=== PATIENT | male | born 1940 | race Caucasian/White ===

== ENCOUNTER 2018-12-02 10:24 | Observation (INO) | payer MEDICARE ==
[2018-12-02 11:06] LABS: #Basophils 0.1 thou/uL (0.0-0.2); #Eosinphils 0.1 thou/uL (0.0-0.7); #Lymphocytes 1.7 thou/uL (1.20-3.40); #Monocytes 1.1 thou/uL (0.11-0.59); #Neutrophils 13.6 thou/uL (1.40-6.50); %Basophils 0.3 % (0.0-1.0); %Eosinophils 0.5 % (0.0-10.0); %Lymphocytes 10.3 % (21.0-51.0); %Monocytes 6.7 % (0.0-10.0); %Neutrophils 82.1 % (42.0-75.0); Hemoglobin 15.7 g/dL (14.0-18.0); Mean Corpuscular HGB CONC 32.1 g/dL (32.0-36.0); Mean Corpuscular Volume 93.5 fL (78.0-98.0); Mean Platelet Volume 9.1 fL (7.4-10.4); Platelet Count 238 thou/uL (130-400); RBC Distribution Width 12.4 % (11.5-14.5); Red Blood Cell (RBC) Count 5.23 mill/uL (4.70-6.10); White Blood Cell (WBC) Count 16.6 thou/uL (4.8-10.8)
--- NOTE | 2018-12-02 11:23 | CT ---
CT BRAIN WITHOUT CONTRAST: HISTORY: Trauma. Weakness. Fall. COMPARISON: There are no previous exams for comparison. FINDINGS: There are changes of cortical atrophy and chronic small vessel ischemic disease. No evidence of acut e infarct, hemorrhage, midline shift, or abnormal extraaxial fluid collections is seen. The ventricu lar size is appropriate, and the basilar cisterns are patent. The bony calvarium is intact. The vis ualized paranasal sinuses and mastoid air cells are well aerated. IMPRESSION: No CT evidence of acute intracranial process. POS: [facility]
--- NOTE | 2018-12-02 11:25 | CT ---
CT CERVICAL SPINE WITHOUT CONTRAST: 12/02/2018 PROVIDED CLINICAL HISTORY: Trauma. FINDINGS: There is no evidence for fracture or traumatic subluxation. Cervical degenerative changes are seen w ith degenerative anterolisthesis of C3 on C4. No prevertebral soft tissue swelling apparent. The vi sualized lung apices appear clear. Vascular calcifications are seen. IMPRESSION: No evidence for fracture or traumatic subluxation. POS: [facility]
[2018-12-02 11:32] LABS: Bilirubin Negative (Negative); Blood, Urine Negative (Negative); Clarity CLEAR (Clear); Glucose, Urine (Dipstick) Negative (Negative); Leukocyte Negative (Negative); Nitrite Negative (Negative); Protein, Urine (Dipstick) Negative (Neg-Trace)
[2018-12-02 11:34] LABS: ALT (SGPT) 16 U/L (8-55); AST (SGOT) 16 U/L (5-34); Albumin 4.3 g/dL (3.4-4.8); Alkaline Phosphatase 76 U/L (40-150); Anion Gap 17 mmol/L (10-20); BUN (Urea Nitrogen) 15 mg/dL (8.4-25.7); Bilirubin, Total 1.1 mg/dL (0.2-1.2); Calc. Creatinine Clearance 0 mL/min (70-130); Calcium 9.4 mg/dL (7.8-10.44); Carbon Dioxide 22 mmol/L (23-31); Chloride 104 mmol/L (98-107); Estimated GFR-MDRD Greater than 90; Globulin 2.9 g/dL (2.4-3.5); Glucose 156 mg/dL (83-110); Potassium 3.9 mmol/L (3.5-5.1); Protein, Total 7.2 g/dL (5.8-8.1); Sodium 139 mmol/L (136-145)
--- NOTE | 2018-12-02 11:55 | RAD ---
PORTABLE CHEST 1 VIEW: Date: 12/02/18 Time: 1131 hours HISTORY: Altered mental status and weakness. FINDINGS: The heart size is normal. The aorta is tortuous. The lungs are well expanded without focal areas of c onsolidation, pneumothoraces, donna pulmonary edema, or pleural effusions. IMPRESSION: No acute process. POS: [facility]
[2018-12-02] MEDS ORDERED: Acetaminophen 325 MG TAB PO PRN (13:26)
[2018-12-02] MEDS ORDERED: Ondansetron ODT 4 MG TAB PO PRN (13:26)
[2018-12-02] MEDS ORDERED: HumaLOG 300 UNITS/3 ML VIAL SC PRN (13:26)
[2018-12-02] MEDS ORDERED: Dextrose 50% Abboject 50 ML SYRINGE SLOW IVP PRN (13:26)
[2018-12-02] MEDS ORDERED: Dextrose 5% in Water 1,000 ML IV PRN (13:26)
--- NOTE | 2018-12-02 14:09 | HP ---
PRIMARY CARE PROVIDER: Red Webster MD. HISTORY OF PRESENT ILLNESS: [facility] with bilateral lower extremity weakness. The patient with Alzheimer disease. No memory of recent events. History obtained through daughter and son-in-law who are at bedside. 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 No injury was noted. He has returned to his baseline mental status. He is alert and responsive, but has less than 30 seconds recent memory. According to family, he does have some strong remote memory. CURRENT MEDICAL PROBLEMS: Alzheimer disease, hypertension, diabetes mellitus type 2, elevated cholesterol. CURRENT MEDICATIONS: Obtained from the family. Amlodipine 5 mg a day, atorvastatin 20 mg a day, metformin 1000 mg twice a day, Namenda 10 mg twice a day, enalapril 10 mg twice a day. ALLERGIES: NO KNOWN DRUG ALLERGIES. PAST SURGICAL HISTORY: Remote tonsillectomy, adenoidectomy, appendectomy. He has had a radical prostatectomy for cancer. It was completely contained within the capsule. He has had no subsequent treatment. He has had an L-spine surgery. FAMILY HISTORY: Mother and father both had hypertension and diabetes. SOCIAL HISTORY: . Daughter is power of employee benefits attorney. She is at bedside. She confirmed he is DNAR. He smoked in the past for years. No alcohol. REVIEW OF SYSTEMS: Unobtainable because of his mental status. The only chronic symptoms are symptoms other than we have discussed. The patient's family states he has arthritis in both knees. PHYSICAL EXAMINATION: GENERAL: As I said before, he is alert, pleasant gentleman, unaware of why he is in the emergency room, in no distress. VITAL SIGNS: Blood pressure 132/76, pulse 91, respirations 13, O2 saturation 94 % on room air, temperature 98.3. HEAD, EYES, EARS, NOSE, AND THROAT: Revealed pupils are equal, round, and reactive to light. Extraocular movements are intact. Sclerae are white. Tympanic membranes are clear. Nose is clear. Oral mucous membranes are wet. Dental hygiene is fair. NECK: Supple without jugular venous distention, adenopathy, or thyromegaly. CHEST: Clear to auscultation and percussion. HEART: Regular rate and rhythm. First and second heart sounds are clear. There are no appreciated murmurs or gallops. He has occasional premature beat. ABDOMEN: Soft. Bowel sounds are normal. There is no hepatosplenomegaly. No mass. No rebound. No bruits. EXTREMITIES: Reveal trace edema with no cyanosis or clubbing. Pulses; carotid, radial, and femoral, and dorsalis pedis pulses intact and symmetric. SKIN: Warm and dry without bruises or rash. HEME/LYMPH: No tender or swollen lymph nodes in the axilla, inguinal, or cervical area. He has no petechial hemorrhages in his mucous membranes or his nail beds. NEUROLOGIC: Cranial nerves 2 through 12 are intact. Deep tendon reflexes are symmetric. Toes are downgoing. Strength is symmetric in his arms and his legs. DIAGNOSTIC DATA: CT scan of his brain shows no acute abnormality, reviewed by me. EKG shows regular sinus rhythm, first degree AV block, and nonspecific T-wave changes, reviewed by me. Comprehensive metabolic profile shows a CO2 of 22 and a glucose of 156. The remainder is normal. Cardiac enzyme was troponin 0.01. Hematology, white count is elevated at 16.6, hemoglobin is 15.7, and platelet count is 238,000. Urinalysis is clear. ADMITTING DIAGNOSES: 1. Transient ischemic attack. 2. Alzheimer's. 3. Diabetes mellitus, type 2. 4. Hypertension. 5. Dyslipidemia. PLAN: 1. Aspirin. 2. An MRI of the brain will be done. 3. Because of some consideration of possible seizure, a stat prolactin will be done. Accu-Cheks and sliding scale will be followed. When further data are obtained , we will re-evaluate and discuss with family and proceed from there. Job ID: [id number] [facility]
[2018-12-02] MEDS ORDERED: Aspirin 325 mg Enteric Coated Tablet PO SCH (15:00)
[2018-12-02] MEDS ORDERED: Aspirin Chewable 81 MG TAB ONE (16:36)
[2018-12-03 05:10] LABS: #Basophils 0.1 thou/uL (0.0-0.2); #Eosinphils 0.2 thou/uL (0.0-0.7); #Lymphocytes 2.1 thou/uL (1.20-3.40); #Neutrophils 6.7 thou/uL (1.40-6.50); %Basophils 0.7 % (0.0-1.0); %Lymphocytes 21.3 % (21.0-51.0); %Monocytes 9.5 % (0.0-10.0); %Neutrophils 66.5 % (42.0-75.0); Hemoglobin 13.9 g/dL (14.0-18.0); Mean Corpuscular HGB CONC 33.1 g/dL (32.0-36.0); Mean Corpuscular Hemoglobin 30.5 pg (27.0-31.0); Mean Corpuscular Volume 92.2 fL (78.0-98.0); Platelet Count 223 thou/uL (130-400); RBC Distribution Width 12.1 % (11.5-14.5); Red Blood Cell (RBC) Count 4.54 mill/uL (4.70-6.10)
[2018-12-03 06:11] LABS: Anion Gap 14 mmol/L (10-20); BUN (Urea Nitrogen) 11 mg/dL (8.4-25.7); Calc. Creatinine Clearance 112 mL/min (70-130); Calcium 9.1 mg/dL (7.8-10.44); Carbon Dioxide 24 mmol/L (23-31); Cardiac Risk 3.5 (Less than 4.5); Chloride 103 mmol/L (98-107); Cholesterol 101 mg/dl (< 200 Desired); Estimated GFR-MDRD Greater than 90; Glucose 133 mg/dL (83-110); HDL Cholesterol 29 mg/dL (>60 Neg Risk); LDL Cholesterol, Calculated 55 mg/dL; Potassium 3.5 mmol/L (3.5-5.1); Sodium 137 mmol/L (136-145); Triglycerides 85 mg/dL (Less than 150)
--- NOTE | 2018-12-03 08:50 | MRI ---
MRI BRAIN WITHOUT CONTRAST: Date: 12/03/18 HISTORY: 78-year-old male with weakness, fall, CVA. FINDINGS: Correlation is made with the previous day's CT scan. Changes of cortical atrophy and chronic small vessel ischemic disease are seen. The ventricular size is appropriate and the basilar cisterns are patent. No restricted diffusion is identified. No evidenc e of acute infarct, hemorrhage, midline shift, or abnormal extra-axial fluid collections are seen. Th e visualized paranasal sinuses and mastoid air cells are well aerated. IMPRESSION: No evidence of acute intracranial process. POS: [facility]
[2018-12-03] MEDS ORDERED: Aspirin 325 mg Enteric Coated Tablet PO SCH (09:00)
[2018-12-03] MEDS ORDERED: Enoxaparin Sodium 40 MG/0.4 ML SYRINGE SC SCH (09:00)
--- NOTE | 2018-12-03 12:39 | DIS ---
DATE OF ADMISSION: 12/02/2018 DATE OF DISCHARGE: 12/03/2018 PRIMARY CARE PROVIDER: Red Webster MD. DISPOSITION: Discharged home. FINAL DIAGNOSES: Transient ischemic attack, diabetes mellitus type 2, essential hypertension, dyslipidemia, Alzheimer disease. DISCHARGE MEDICATIONS: His usual medicines with the addition of: 1. Aspirin 325 mg a day. 2. Memantine 10 mg twice a day. 3. Amlodipine 5 mg a day. 4. Enalapril 15 mg twice a day. 5. Metformin 1000 mg twice a day. 6. Atorvastatin 20 mg a day. 7. Ibuprofen p.r.n. ALLERGIES: NO KNOWN MEDICAL ALLERGIES. DIET: Diabetic. ACTIVITY: As tolerated. PENDING AT TIME OF DISCHARGE: Nothing. CODE STATUS: DNAR. HOSPITAL COURSE: The patient referred to the [facility] by [facility] for possible TIA. The patient had a spell where he was weak, sweaty, unable to support himself, had some slurred speech, this lasted several minutes. He was brought to the hospital, evaluated in the emergency room. CT scan was unremarkable. Admitting laboratory was unremarkable except for a white count of 16.6, it came down to 10.0 today; hemoglobin 15.7; platelet count 238,000. His comprehensive metabolic profile was normal except for low CO2 of 22 and a blood sugar of 156. Cardiac enzymes were done which were normal. A prolactin level was ordered, which was normal. Cholesterol is only 101, LDL 55, HDL 29, triglycerides 85. The patient's neurological status was intact. His mental status was baseline for him, Alzheimer disease. Oriented to person only. He was in no distress. An MRI of the brain was done which was unremarkable. PT and OT were done. He was functional. Situation was discussed with family. An aspirin of course was added to his regimen at the time of his admission. He is being discharged on aspirin 325 mg a day. He is to follow up with his primary care provider, Dr. Webster in one week. CONSULTATIONS: None. PROCEDURES: None. Job ID: [id number]
[2018-12-03 15:43] VITALS: BP 181/94; TEMP 97.9
--- NOTE | 2018-12-05 20:52 | EKG ---
Test Reason : WEAKNESS Blood Pressure : / mmHG Vent. Rate : 093 BPM Atrial Rate : 093 BPM P-R Int : 218 ms QRS Dur : 092 ms QT Int : 364 ms P-R-T Axes : 030 -41 -25 degrees QTc Int : 452 ms Sinus rhythm with 1st degree A-V block Left axis deviation Possible Anterolateral infarct , age undetermined Abnormal ECG Confirmed by DAVID BHATIA, DENISE Alva ([id number]), assistant editor LISBET OLIVEROS ([id number]) on 12/05/2018 8:52:36 PM Referred By: Confirmed By:DENISE HERNANDEZ MD
== END 2018-12-03 16:39 | disposition home health service (06) ==
LOC: ERS 10:24 → 2SE 12:43
PROVIDERS: ADMIT Internal Medicine; ATTEND Internal Medicine
DX: G45.9 Transient cerebral ischemic attack, unspecified (principal); E11.9 Type 2 diabetes mellitus without complications; I10 Essential (primary) hypertension; E78.5 Hyperlipidemia, unspecified; G30.9 Alzheimer's disease, unspecified; F02.80 Dementia in other diseases classified elsewhere, unspecified severity, without behavioral disturbance, psychotic disturbance, mood disturbance, and anxiety; E78.00 Pure hypercholesterolemia, unspecified; Z79.84 Long term (current) use of oral hypoglycemic drugs; Z79.899 Other long term (current) drug therapy; Z87.891 Personal history of nicotine dependence; Z66 Do not resuscitate
CPT/HCPCS: 51701; 70450; 70551; 71045; 72125; 80048; 80053; 80061; 81003; 82962; 84146; 84484; 85025 ×2; 93005; 96372; 97116; 97139 ×2; 97530; 97535; 99285; G0378 ×2; 36415; 36416; J1650

== ENCOUNTER 2019-01-07 03:55 | Inpatient (IN) | payer MEDICARE ==
[2019-01-07 04:15] LABS: #Basophils 0.1 thou/uL (0.0-0.2); #Eosinphils 0.2 thou/uL (0.0-0.7); #Neutrophils 15.8 thou/uL (1.40-6.50); %Basophils 0.4 % (0.0-1.0); %Eosinophils 0.8 % (0.0-10.0); %Lymphocytes 10.3 % (21.0-51.0); %Monocytes 5.2 % (0.0-10.0); %Neutrophils 83.3 % (42.0-75.0); Hemoglobin 14.5 g/dL (14.0-18.0); Mean Corpuscular Hemoglobin 30.1 pg (27.0-31.0); Mean Corpuscular Volume 94.2 fL (78.0-98.0); Mean Platelet Volume 8.2 fL (7.4-10.4); Platelet Count 279 thou/uL (130-400); RBC Distribution Width 12.1 % (11.5-14.5); Red Blood Cell (RBC) Count 4.82 mill/uL (4.70-6.10); White Blood Cell (WBC) Count 18.9 thou/uL (4.8-10.8)
[2019-01-07 04:38] LABS: ALT (SGPT) 13 U/L (8-55); AST (SGOT) 18 U/L (5-34); Albumin 4.2 g/dL (3.4-4.8); Alkaline Phosphatase 77 U/L (40-150); Anion Gap 24 mmol/L (10-20); BUN (Urea Nitrogen) 16 mg/dL (8.4-25.7); Bilirubin, Total 1.3 mg/dL (0.2-1.2); CK (CPK) 235 U/L (30-200); Calc. Creatinine Clearance 0 mL/min (70-130); Calcium 9.8 mg/dL (7.8-10.44); Carbon Dioxide 15 mmol/L (23-31); Chloride 100 mmol/L (98-107); Estimated GFR-MDRD 70; Globulin 2.8 g/dL (2.4-3.5); Glucose 190 mg/dL (83-110); Potassium 4.3 mmol/L (3.5-5.1); Sodium 135 mmol/L (136-145)
[2019-01-07] MEDS ORDERED: Piperacillin/Tazobactam 4.5 GM VIAL ONE (05:04)
[2019-01-07 05:17] LABS: Bilirubin Negative (Negative); Blood, Urine Negative (Negative); Clarity CLEAR (Clear); Glucose, Urine (Dipstick) Negative (Negative); Leukocyte Negative (Negative); Nitrite Negative (Negative); Protein, Urine (Dipstick) Negative (Neg-Trace); Specific Gravity, Urine 1.019 (1.002-1.036)
--- NOTE | 2019-01-07 07:35 | RAD ---
LEFT HAND 3 VIEWS: Date: 01/07/19 INDICATION: History of trauma with left hand pain. FINDINGS: There is diffuse osteopenia. There is advanced STT and first CMC osteoarthrosis. There is mild scatte red IP osteoarthrosis. A small amount of chondrocalcinosis is present within the radiocarpal joint. N o acute fracture or subluxation is evident. IMPRESSION: 1. Scattered osteoarthrosis left hand with diffuse osteopenia and chondrocalcinosis of the radiocarp al joint. 2. No acute osseous abnormality demonstrated. POS: [facility]
--- NOTE | 2019-01-07 07:37 | RAD ---
3 VIEWS LEFT WRIST: Date: 01/07/19 INDICATION: Trauma with left wrist pain. COMPARISON: None. FINDINGS: There is chondrocalcinosis of the radiocarpal joint. There is advanced first CMC and STT osteoarthros is. There is mild negative orientation seen at the DRUJ. There are vascular calcifications of the sof t tissues. No acute fracture or subluxation is evident. IMPRESSION: No acute osseous abnormality. POS: [facility]
--- NOTE | 2019-01-07 07:38 | RAD ---
FOUR VIEWS OF THE LEFT KNEE: (Five total views submitted. There was a repeat AP examination) INDICATION: Trauma. FINDINGS: There is moderate to severe osteoarthrosis of the left knee without joint capsular distention. No ac nulato fracture or subluxation is evident. IMPRESSION: Moderate to severe osteoarthrosis of the left knee. POS: [facility]
--- NOTE | 2019-01-07 07:41 | RAD ---
CHEST 1 VIEW: Date: 01/07/19 INDICATION: Altered mental status. COMPARISON: Prior exam dated 12/02/18. FINDINGS: Chronic lung changes are stable. Tortuosity of the aorta is similar appearing. Heart size upper limit s of normal. No consolidation, pleural effusion, or pneumothorax evident. No acute osseous abnormalit y is evident. IMPRESSION: No acute cardiopulmonary abnormality. Stable examination to the recent examination dated 12/02/18. POS: [facility]
--- NOTE | 2019-01-07 07:48 | CT ---
PRELIMINARY REPORT/[facility]/EMERGENTY AFTER-HOURS PROCEDURE Addendum created by Aruna Le MD on 01/07/2019 4:44 AM Central Time ([place] & [place]) THIS REPORT CONTAI NS FINDINGS THAT MAY BE CRITICAL TO PATIENT CARE. The findings were verbally communicated via telephone conference with DIMITRY MCNALLY at 4:44 AM DIRECTOR OF ENTERTAINMENT on 01/07/2019 . The findings were acknowledged and understood. Initial Report created on 01/07/2019 4:40 AM Central Time ([place] & [place]) CT Head Without Contrast EXAM DATE/TIME: 01/07/2019 4:20 AM CLINICAL HISTORY: 78 years old, male; Signs and symptoms; Altered mental status/memory loss; Confusion or disorientatio n; Patient HX: Er 10; M78 presents to ed via ems C/O AMS. Ems reports PT was found by paper boy wande ring around, talking incoherently about "living in the sidewalk. " in ed, PT admits to confusion, does not know how long he was outside for. Hospital records indicate pmhx of cad, dm, H TN, prostate CA, and alzheimer's TECHNIQUE: Axial computed tomography images of the head/brain without contrast. COMPARISON: No relevant prior studies available. FINDINGS: Brain: Moderate chronic microvascular ischemic changes are noted in the periventricular areas. Modera te diffuse cerebral atrophy is seen. Ventricles: Hypodensity measuring 4 x 2.8 cm in the posterior horn of the right ventricle likely repr esents a subacute or chronic infarct. Bones/joints: Unremarkable. No acute fracture. Sinuses: Visualized sinuses are unremarkable. No acute sinusitis. Mastoid air cells: Visualized mastoid air cells are unremarkable. No mastoid effusion. Soft tissues: Unremarkable. Vasculature: Vertebral artery calcifications are seen. IMPRESSION: 1. Hypodensity in the posterior horn of the right ventricle likely represents a subacute or chronic i nfarct. Comparison to prior studies is recommended. MRI can be obtained if clinically indicated. 2. Moderate chronic microvascular ischemic changes with moderate diffuse cerebral atrophy. Thank you for allowing us to participate in the care of your patient. Dictated and Authenticated by: Aruna Le MD 01/07/2019 4:40 AM Central Time ([place] & [place]) FINAL REPORT CT BRAIN WITHOUT CONTRAST: Indication: 78-year-old male with altered mental status found wandering around. Comparison: 12-02-18 FINDINGS: Prominent area of hypodensity within the right periventricular white matter in the right parietal reg ion has been stable since 12-02-18 and likely related to chronic ischemic change. Small punctate lacun ar infarcts involving the left cerebellar hemisphere are stable. Septum pellucidum and third ventricl e are midline. No definite acute intracranial hemorrhage is evident. There is moderate generalized ce rebral and cerebellar atrophy. Skull is intact. Mastoid air cells are clear. IMPRESSION: I disagree with the preliminary report provided. No definite acute intracranial abnormality is eviden t. There is stable chronic ischemic change as detailed above. POS: [facility]
[2019-01-07 09:34] VITALS: BMI 31.5
[2019-01-07 09:48] LABS: Lactic Acid 1.8 mmol/L (0.5-2.2)
[2019-01-07] MEDS ORDERED: Acetaminophen 325 MG TAB PO PRN (13:37)
[2019-01-07] MEDS ORDERED: Senokot S 8.6-50 MG TAB PO PRN (13:37)
[2019-01-07] MEDS ORDERED: Acetaminophen 650 MG Suppository PR PRN (13:37)
[2019-01-07] MEDS ORDERED: Dextrose 50% Abboject 50 ML SYRINGE SLOW IVP PRN (13:42)
[2019-01-07] MEDS ORDERED: HumaLOG 300 UNITS/3 ML VIAL SC PRN (13:42)
[2019-01-07] MEDS ORDERED: Dextrose 5% in Water 1,000 ML IV PRN (13:42)
[2019-01-07] MEDS: Piperacillin/Tazobactam 4.5 GM in Sodium Chloride 0.9% 100 ML IVPB SCH ×2 (16:01→21:19)
[2019-01-07] MEDS: Sodium Chloride 0.9% 1,000 ML IV SCH (16:01)
--- NOTE | 2019-01-07 17:04 | HP ---
PRIMARY CARE PROVIDER: Dr. Red Webster. CHIEF COMPLAINT: Altered mental status. HISTORY OF PRESENT ILLNESS: Mr. Contreras is a pleasant 78-year-old gentleman, who was seen at [facility] on January 07, 2019. He is a resident at [facility]. He has a history of dementia. He was found wandering outside last night. He was talking incoherently about "living in the sidewalk." The paper boy who found him brought him to his apartment, with open door and pictures matching the patient and everything labeled for possible memory care. The patient denied living there. Therefore, the paper boy called EMS. The patient is currently unable to provide any significant history. History was obtained from discussion with the patient's family members, from emergency room physician, and review of medical records. REVIEW OF SYSTEMS: Could not be completed. PAST MEDICAL HISTORY: Alzheimer disease, hypertension, diabetes mellitus type 2 , dyslipidemia, and prostate cancer. PAST SURGICAL HISTORY: Tonsillectomy, adenoidectomy, appendectomy, radical prostatectomy for cancer, and L-spine surgery. CODE STATUS: I discussed his code status. He is DNAR. SOCIAL HISTORY: No history of tobacco use, alcohol use, or recreational drug use. FAMILY HISTORY: Hypertension and diabetes mellitus in both parents. PHYSICAL EXAMINATION: GENERAL: On examination, Mr. Contreras is awake and alert, not in acute distress. VITAL SIGNS: Blood pressure is 151/80, pulse 78, respiratory rate 20, and oxygen saturation 95% on room air. He is afebrile. He is obese, with a BMI of 31.5. EYES: No scleral icterus, no conjunctival pallor. ENT: Dry mucosal membranes, no oropharyngeal erythema or exudates. NECK: Supple, nontender, trachea is midline. RESPIRATORY: Accessory muscles of breathing are not active. Chest wall movements are symmetric bilaterally. LUNGS: Clear to auscultation without wheeze, rhonchi, or crepitations. CARDIOVASCULAR: S1 and S2 are heard, regular. Peripheral pulses palpable. No carotid bruit. No pericardial rub. ABDOMEN: Soft, nontender, bowel sounds are heard. NEUROLOGIC: Full neurologic examination not possible secondary to patient's noncooperation. No facial droop. Deep tendon reflexes 2+, plantars downgoing bilaterally. SKIN: No rashes or subcutaneous nodules. LYMPHATIC: No cervical lymphadenopathy. PSYCHIATRIC: Normal mood, normal affect, the patient is oriented to person only. LABORATORY DATA: Mr. Contreras's labs and investigations were reviewed. EKG showed sinus rhythm with first-degree AV block. Chest x-ray did not show any acute cardiopulmonary abnormality. Noncontrast CT scan of the brain did not show any acute abnormalities either. X-rays of the left hand showed osteoarthrosis with diffuse osteopenia. X-rays of the left knee showed moderate to severe osteoarthrosis of the left knee. X-rays of the left wrist showed no acute osseous abnormality. He has leukocytosis with 18,900 white cells, of which 83.3% are neutrophils, normal hemoglobin, normal platelet count, decreased sodium of 135, normal potassium, decreased carbon dioxide of 15, elevated anion gap of 24, normal creatinine, elevated lactic acid level of 4.1, mildly elevated total bilirubin of 1.3, otherwise unremarkable LFTs and normal TSH. Troponin I is normal. Urinalysis is positive only for ketones. ASSESSMENT AND PLAN: Mr. Contreras is a pleasant 78-year-old gentleman, who was seen at [facility] on January 07, 2019. His problem list includes: 1. Acute metabolic encephalopathy: Mr. Contreras is presenting with acute metabolic encephalopathy, etiology is unclear at this time. It could be related to sepsis and infection. 2. Sepsis: Mr. Contreras is presenting with sepsis. Urinalysis is negative, chest x-ray does not show any acute infiltrates. He will be admitted to the hospital on broad-spectrum antibiotics. Blood cultures have been sent. We will await blood culture results. 3. Diabetes mellitus type 2: We will start the patient on Accu-Cheks and insulin sliding scale. 4. Hypertension: We will monitor vital signs and titrate antihypertensives as needed. 5. Dyslipidemia: We will continue statin. Many thanks for allowing me to participate in your patient's care. Please feel free to contact me with any questions or concerns. LEVEL OF RISK: Moderate. LEVEL OF COMPLEXITY: Moderate. Job ID: [id number] [facility]
[2019-01-07] MEDS: metFORMIN 500 MG TAB PO SCH (20:02)
[2019-01-07] MEDS ORDERED: Prevnar 13-Val Conj/PF 0.5 ML SYRINGE IM ONE (21:00)
[2019-01-08] MEDS: Piperacillin/Tazobactam 4.5 GM in Sodium Chloride 0.9% 100 ML IVPB SCH ×3 (05:25→21:51)
[2019-01-08] MEDS: Sodium Chloride 0.9% 1,000 ML IV SCH (05:25)
[2019-01-08 08:41] LABS: #Basophils 0.1 thou/uL (0.0-0.2); #Eosinphils 0.5 thou/uL (0.0-0.7); #Lymphocytes 1.7 thou/uL (1.20-3.40); #Neutrophils 8.8 thou/uL (1.40-6.50); %Basophils 0.6 % (0.0-1.0); %Eosinophils 3.9 % (0.0-10.0); %Monocytes 8.6 % (0.0-10.0); %Neutrophils 72.9 % (42.0-75.0); Hemoglobin 12.8 g/dL (14.0-18.0); Mean Corpuscular HGB CONC 32.6 g/dL (32.0-36.0); Mean Corpuscular Hemoglobin 30.5 pg (27.0-31.0); Mean Corpuscular Volume 93.4 fL (78.0-98.0); Mean Platelet Volume 8.4 fL (7.4-10.4); Platelet Count 233 thou/uL (130-400); RBC Distribution Width 12.1 % (11.5-14.5); Red Blood Cell (RBC) Count 4.22 mill/uL (4.70-6.10)
[2019-01-08 09:03] LABS: Anion Gap 13 mmol/L (10-20); BUN (Urea Nitrogen) 7 mg/dL (8.4-25.7); Calc. Creatinine Clearance 108 mL/min (70-130); Calcium 8.4 mg/dL (7.8-10.44); Carbon Dioxide 25 mmol/L (23-31); Chloride 107 mmol/L (98-107); Estimated GFR-MDRD Greater than 90; Glucose 105 mg/dL (83-110); Potassium 3.8 mmol/L (3.5-5.1); Sodium 141 mmol/L (136-145)
[2019-01-08] MEDS: metFORMIN 500 MG TAB PO SCH ×2 (09:21→20:22)
[2019-01-08] MEDS: Aspirin 325 mg Enteric Coated Tablet PO SCH (09:23)
[2019-01-08] MEDS: Atorvastatin Calcium 20 MG TAB PO SCH (09:24)
[2019-01-08] MEDS: Amlodipine 5 MG TAB PO SCH (09:24)
[2019-01-08] MEDS: Enoxaparin Sodium 40 MG/0.4 ML SYRINGE SC SCH (09:26)
--- NOTE | 2019-01-08 15:23 | PDOC.PN ---
- Subjective Encounter Start Date: 01/08/19 Encounter Start Time: 09:00 Pt seen for followup re: acute metabolic encephalopathy. More alert today, answering questions. - Objective Resuscitation Status - Order Detail: 01/07/19 13:37 Resuscitation Status Routine Resuscitation Status: DNAR: NO Resuscitation Discussed with: family MAR Reviewed: Yes Vital Signs & Weight: Vital Signs (12 hours) Temp Pulse Resp BP BP Pulse Ox 01/08/19 11:00 98.8 F 95 20 131/79 92 L 01/08/19 09:24 69 156/80 H 01/08/19 09:19 156/80 H 01/08/19 07:29 97.6 F 69 18 135/67 93 L 01/08/19 04:00 98.3 F 66 18 144/79 H 92 L Weight Weight 213 lb 6 oz I&O: 01/07/19 01/08/19 01/09/19 06:59 06:59 06:59 Intake Total 1020 Balance 1020 Result Diagrams: 01/08/19 07:52 01/08/19 07:52 Additional Labs: Accuchecks 01/08/19 01/08/19 01/07/19 12:05 05:15 20:39 POC Glucose 103 92 156 H 01/07/19 16:18 POC Glucose 124 H labs reviewed by me Phys Exam - Physical Examination Constitutional: NAD HEENT: moist MMs Neck: supple Respiratory: clear to auscultation bilateral Cardiovascular: RRR Gastrointestinal: soft Neurological: moves all 4 limbs Psychiatric: normal affect Dx/Plan (1) Acute metabolic encephalopathy Code(s): G93.41 - METABOLIC ENCEPHALOPATHY Status: Acute Comment: Improving (2) Sepsis Code(s): A41.9 - SEPSIS, UNSPECIFIED ORGANISM Status: Suspected Comment: continue antibiotics as below, await blood cultures (3) Alzheimer disease Code(s): G30.9 - ALZHEIMER'S DISEASE, UNSPECIFIED; F02.80 - DEMENTIA IN OTH DISEASES CLASSD ELSWHR W/O BEHAVRL DISTURB Status: Chronic Comment: continue memantine (4) DM type 2 (diabetes mellitus, type 2) Status: Chronic Comment: controlled (5) HTN (hypertension) Code(s): I10 - ESSENTIAL (PRIMARY) HYPERTENSION Status: Chronic Comment: controlled - Plan plan discussed w/ family, continue antibiotics, out of bed/ambulate * . Review of Systems - Review of Systems Respiratory: negative: Cough, Shortness of Breath, SOB with Excertion, Pleuritic Pain, Wheezing Cardiovascular: negative: chest pain, palpitations, orthopnea, paroxysmal nocturnal dyspnea, edema, light headedness - Medications/Allergies Allergies/Adverse Reactions: Allergies Allergy/AdvReac Type Severity Reaction Status Date / Time No Known Allergies Allergy Unverified 12/02/18 14:27 Medications: Current Medications Acetaminophen (Tylenol) 650 mg PO Q4H PRN PRN Reason: Headache/Fever/Mild Pain (1-3) Acetaminophen (Tylenol) 650 mg AR Q4H PRN PRN Reason: Headache/Fever/Mild Pain (1-3) Amlodipine Besylate (Norvasc) 5 mg PO DAILY [facility] Last Admin: 01/08/19 09:24 Dose: 5 mg Aspirin (Ecotrin) 325 mg PO DAILY [facility] Last Admin: 01/08/19 09:23 Dose: 325 mg Atorvastatin Calcium (Lipitor) 20 mg PO DAILY [facility] Last Admin: 01/08/19 09:24 Dose: 20 mg Dextrose/Water (Dextrose 50%) 25 gm SLOW IVP PRN PRN PRN Reason: Hypoglycemia Enalapril Maleate (Vasotec) 15 mg PO BID [facility] Last Admin: 01/08/19 09:19 Dose: 15 mg Enoxaparin Sodium (Lovenox) 40 mg SC 0900 [facility] Last Admin: 01/08/19 09:26 Dose: 40 mg Glucagon (Glucagon) 1 mg IM PRN PRN PRN Reason: Hypoglycemia Piperacillin Sod/Tazobactam (Sod 4.5 gm/ Sodium Chloride) 100 mls @ 200 mls/hr IVPB Q8HR [facility] Last Admin: 01/08/19 14:10 Dose: 100 mls Dextrose/Water (D5w) 1,000 mls @ 0 mls/hr IV .Q0M PRN PRN Reason: Hypoglycemia Insulin Human Lispro (Humalog) 0 units SC .MILD SLIDING SCALE PRN PRN Reason: Mild Correctional Scale Memantine (Namenda) 10 mg PO BID [facility] Last Admin: 01/08/19 09:24 Dose: 10 mg Metformin HCl (Glucophage) 1,000 mg PO BID [facility] Last Admin: 01/08/19 09:21 Dose: 1,000 mg Senna/Docusate Sodium (Senokot S) 2 tab PO BID PRN PRN Reason: Constipation
[2019-01-09] MEDS: Piperacillin/Tazobactam 4.5 GM in Sodium Chloride 0.9% 100 ML IVPB SCH ×3 (05:29→20:49)
[2019-01-09 07:26] LABS: #Basophils 0.1 thou/uL (0.0-0.2); #Eosinphils 0.4 thou/uL (0.0-0.7); #Lymphocytes 2.5 thou/uL (1.20-3.40); #Monocytes 0.8 thou/uL (0.11-0.59); #Neutrophils 4.8 thou/uL (1.40-6.50); %Basophils 0.9 % (0.0-1.0); %Eosinophils 5.1 % (0.0-10.0); %Lymphocytes 28.7 % (21.0-51.0); %Monocytes 9.4 % (0.0-10.0); %Neutrophils 55.9 % (42.0-75.0); Hemoglobin 12.2 g/dL (14.0-18.0); Mean Corpuscular HGB CONC 32.9 g/dL (32.0-36.0); Mean Corpuscular Hemoglobin 30.8 pg (27.0-31.0); Mean Corpuscular Volume 93.6 fL (78.0-98.0); Mean Platelet Volume 8.1 fL (7.4-10.4); Platelet Count 205 thou/uL (130-400); Red Blood Cell (RBC) Count 3.98 mill/uL (4.70-6.10); White Blood Cell (WBC) Count 8.7 thou/uL (4.8-10.8)
[2019-01-09 07:45] LABS: Anion Gap 11 mmol/L (10-20); BUN (Urea Nitrogen) 7 mg/dL (8.4-25.7); Calc. Creatinine Clearance 108 mL/min (70-130); Calcium 8.1 mg/dL (7.8-10.44); Carbon Dioxide 26 mmol/L (23-31); Chloride 105 mmol/L (98-107); Estimated GFR-MDRD Greater than 90; Glucose 88 mg/dL (83-110); Potassium 3.4 mmol/L (3.5-5.1); Sodium 139 mmol/L (136-145)
[2019-01-09] MEDS ORDERED: Potassium Chloride 20 MEQ TAB PO SCH (08:45)
[2019-01-09] MEDS: Aspirin 325 mg Enteric Coated Tablet PO SCH (08:51)
[2019-01-09] MEDS: metFORMIN 500 MG TAB PO SCH ×2 (08:51→20:46)
[2019-01-09] MEDS: Enoxaparin Sodium 40 MG/0.4 ML SYRINGE SC SCH (08:51)
[2019-01-09] MEDS: Atorvastatin Calcium 20 MG TAB PO SCH (08:52)
[2019-01-09] MEDS: Amlodipine 5 MG TAB PO SCH (08:53)
--- NOTE | 2019-01-09 15:09 | PDOC.PN ---
- Subjective Encounter Start Date: 01/09/19 Encounter Start Time: 09:20 Pt seen for followup re: acute metabolic encephalopathy. Says he feels better. - Objective Resuscitation Status - Order Detail: 01/07/19 13:37 Resuscitation Status Routine Resuscitation Status: DNAR: NO Resuscitation Discussed with: family MAR Reviewed: Yes Vital Signs & Weight: Vital Signs (12 hours) Temp Pulse Resp BP BP Pulse Ox 01/09/19 11:00 98.7 F 74 18 152/80 H 99 01/09/19 08:53 62 145/64 H 01/09/19 08:51 145/64 H 01/09/19 08:00 96 01/09/19 07:17 97.9 F 62 18 145/64 H 96 Weight Weight 213 lb 6 oz I&O: 01/08/19 01/09/19 01/10/19 06:59 06:59 06:59 Intake Total 1020 550 480 Balance 1020 550 480 Result Diagrams: 01/09/19 07:00 01/09/19 07:00 Additional Labs: Accuchecks 01/09/19 01/09/19 01/08/19 11:14 05:17 20:39 POC Glucose 82 89 135 H 01/08/19 16:26 POC Glucose 99 Labs reviewed by me Phys Exam - Physical Examination Constitutional: NAD HEENT: moist MMs Neck: supple Respiratory: clear to auscultation bilateral Cardiovascular: RRR Gastrointestinal: soft Neurological: moves all 4 limbs Psychiatric: normal affect Dx/Plan (1) Acute metabolic encephalopathy Code(s): G93.41 - METABOLIC ENCEPHALOPATHY Status: Acute Comment: Improving , pt is on antibiotics for suspected sepsis (2) Sepsis Code(s): A41.9 - SEPSIS, UNSPECIFIED ORGANISM Status: Suspected Comment: await blood cultures (3) Alzheimer disease Code(s): G30.9 - ALZHEIMER'S DISEASE, UNSPECIFIED; F02.80 - DEMENTIA IN OTH DISEASES CLASSD ELSWHR W/O BEHAVRL DISTURB Status: Chronic Comment: on memantine (4) DM type 2 (diabetes mellitus, type 2) Status: Chronic Comment: controlled (5) HTN (hypertension) Code(s): I10 - ESSENTIAL (PRIMARY) HYPERTENSION Status: Chronic Comment: controlled - Plan * . Review of Systems - Review of Systems Cardiovascular: negative: chest pain, palpitations, orthopnea, paroxysmal nocturnal dyspnea, edema, light headedness Gastrointestinal: negative: Nausea, Vomiting, Abdominal Pain, Diarrhea, Constipation, Melena, Hematochezia - Medications/Allergies Allergies/Adverse Reactions: Allergies Allergy/AdvReac Type Severity Reaction Status Date / Time No Known Allergies Allergy Unverified 12/02/18 14:27 Medications: Current Medications Acetaminophen (Tylenol) 650 mg PO Q4H PRN PRN Reason: Headache/Fever/Mild Pain (1-3) Last Admin: 01/08/19 20:22 Dose: 650 mg Acetaminophen (Tylenol) 650 mg [place] Q4H PRN PRN Reason: Headache/Fever/Mild Pain (1-3) Amlodipine Besylate (Norvasc) 5 mg PO DAILY [facility] Last Admin: 01/09/19 08:53 Dose: 5 mg Aspirin (Ecotrin) 325 mg PO DAILY [facility] Last Admin: 01/09/19 08:51 Dose: 325 mg Atorvastatin Calcium (Lipitor) 20 mg PO DAILY [facility] Last Admin: 01/09/19 08:52 Dose: 20 mg Dextrose/Water (Dextrose 50%) 25 gm SLOW IVP PRN PRN PRN Reason: Hypoglycemia Enalapril Maleate (Vasotec) 15 mg PO BID [facility] Last Admin: 01/09/19 08:51 Dose: 15 mg Enoxaparin Sodium (Lovenox) 40 mg SC 0900 [facility] Last Admin: 01/09/19 08:51 Dose: 40 mg Glucagon (Glucagon) 1 mg IM PRN PRN PRN Reason: Hypoglycemia Piperacillin Sod/Tazobactam (Sod 4.5 gm/ Sodium Chloride) 100 mls @ 200 mls/hr IVPB Q8HR [facility] Last Admin: 01/09/19 15:03 Dose: 100 mls Dextrose/Water (D5w) 1,000 mls @ 0 mls/hr IV .Q0M PRN PRN Reason: Hypoglycemia Insulin Human Lispro (Humalog) 0 units SC .MILD SLIDING SCALE PRN PRN Reason: Mild Correctional Scale Memantine (Namenda) 10 mg PO BID [facility] Last Admin: 01/09/19 08:51 Dose: 10 mg Metformin HCl (Glucophage) 1,000 mg PO BID [facility] Last Admin: 01/09/19 08:51 Dose: 1,000 mg Senna/Docusate Sodium (Senokot S) 2 tab PO BID PRN PRN Reason: Constipation
[2019-01-10] MEDS: Piperacillin/Tazobactam 4.5 GM in Sodium Chloride 0.9% 100 ML IVPB SCH (05:15)
[2019-01-10 07:45] LABS: #Basophils 0.1 thou/uL (0.0-0.2); #Eosinphils 0.4 thou/uL (0.0-0.7); #Lymphocytes 1.8 thou/uL (1.20-3.40); #Monocytes 0.8 thou/uL (0.11-0.59); #Neutrophils 3.5 thou/uL (1.40-6.50); %Basophils 1.4 % (0.0-1.0); %Eosinophils 6.4 % (0.0-10.0); %Lymphocytes 26.9 % (21.0-51.0); %Monocytes 11.9 % (0.0-10.0); %Neutrophils 53.4 % (42.0-75.0); Hemoglobin 12.6 g/dL (14.0-18.0); Mean Corpuscular HGB CONC 32.2 g/dL (32.0-36.0); Mean Corpuscular Volume 93.1 fL (78.0-98.0); Mean Platelet Volume 8.3 fL (7.4-10.4); Platelet Count 230 thou/uL (130-400); Red Blood Cell (RBC) Count 4.19 mill/uL (4.70-6.10); White Blood Cell (WBC) Count 6.6 thou/uL (4.8-10.8)
[2019-01-10 08:07] LABS: Anion Gap 15 mmol/L (10-20); BUN (Urea Nitrogen) 7 mg/dL (8.4-25.7); Calc. Creatinine Clearance 108 mL/min (70-130); Calcium 8.2 mg/dL (7.8-10.44); Carbon Dioxide 23 mmol/L (23-31); Chloride 107 mmol/L (98-107); Estimated GFR-MDRD Greater than 90; Glucose 90 mg/dL (83-110); Potassium 3.7 mmol/L (3.5-5.1); Sodium 141 mmol/L (136-145)
[2019-01-10] MEDS: metFORMIN 500 MG TAB PO SCH ×2 (08:54→20:17)
[2019-01-10] MEDS: Amlodipine 5 MG TAB PO SCH (08:54)
[2019-01-10] MEDS: Aspirin 325 mg Enteric Coated Tablet PO SCH (08:54)
[2019-01-10] MEDS: Enoxaparin Sodium 40 MG/0.4 ML SYRINGE SC SCH (08:55)
[2019-01-10] MEDS: Atorvastatin Calcium 20 MG TAB PO SCH (08:55)
--- NOTE | 2019-01-10 13:43 | PDOC.PN ---
- Subjective Encounter Start Date: 01/10/19 Encounter Start Time: 10:00 Pt seen for followup re: acute metabolic encephalopathy. Feels well. - Objective Resuscitation Status - Order Detail: 01/07/19 13:37 Resuscitation Status Routine Resuscitation Status: DNAR: NO Resuscitation Discussed with: family Vital Signs & Weight: Vital Signs (12 hours) Temp Pulse Resp BP BP Pulse Ox 01/10/19 08:57 150/72 H 01/10/19 07:53 98.8 F 67 18 146/72 H 94 L Weight Weight 213 lb 6 oz I&O: 01/09/19 01/10/19 01/11/19 06:59 06:59 06:59 Intake Total 550 720 Balance 550 720 Result Diagrams: 01/10/19 06:48 01/10/19 06:48 Additional Labs: Accuchecks 01/10/19 01/09/19 01/09/19 05:23 20:20 16:15 POC Glucose 88 169 H 81 Phys Exam - Physical Examination Constitutional: NAD HEENT: moist MMs Neck: supple Respiratory: clear to auscultation bilateral Cardiovascular: RRR Gastrointestinal: soft Neurological: moves all 4 limbs Psychiatric: normal affect Dx/Plan (1) Acute metabolic encephalopathy Code(s): G93.41 - METABOLIC ENCEPHALOPATHY Status: Acute Comment: Improving (2) Sepsis Code(s): A41.9 - SEPSIS, UNSPECIFIED ORGANISM Status: Suspected Comment: preliminary blood cultures negative, discontinue antibiotics and observe (3) Alzheimer disease Code(s): G30.9 - ALZHEIMER'S DISEASE, UNSPECIFIED; F02.80 - DEMENTIA IN OTH DISEASES CLASSD ELSWHR W/O BEHAVRL DISTURB Status: Chronic Comment: continue memantine (4) DM type 2 (diabetes mellitus, type 2) Status: Chronic Comment: controlled (5) HTN (hypertension) Code(s): I10 - ESSENTIAL (PRIMARY) HYPERTENSION Status: Chronic Comment: controlled - Plan PT/OT, out of bed/ambulate * . Review of Systems - Review of Systems Respiratory: negative: Cough, Shortness of Breath, SOB with Excertion, Pleuritic Pain, Wheezing Cardiovascular: negative: chest pain, palpitations, orthopnea, paroxysmal nocturnal dyspnea, edema, light headedness - Medications/Allergies Allergies/Adverse Reactions: Allergies Allergy/AdvReac Type Severity Reaction Status Date / Time No Known Allergies Allergy Unverified 12/02/18 14:27 Medications: Current Medications Acetaminophen (Tylenol) 650 mg PO Q4H PRN PRN Reason: Headache/Fever/Mild Pain (1-3) Last Admin: 01/08/19 20:22 Dose: 650 mg Acetaminophen (Tylenol) 650 mg [place] Q4H PRN PRN Reason: Headache/Fever/Mild Pain (1-3) Amlodipine Besylate (Norvasc) 5 mg PO DAILY [facility] Last Admin: 01/10/19 08:54 Dose: 5 mg Aspirin (Ecotrin) 325 mg PO DAILY [facility] Last Admin: 01/10/19 08:54 Dose: 325 mg Atorvastatin Calcium (Lipitor) 20 mg PO DAILY [facility] Last Admin: 01/10/19 08:55 Dose: 20 mg Dextrose/Water (Dextrose 50%) 25 gm SLOW IVP PRN PRN PRN Reason: Hypoglycemia Enalapril Maleate (Vasotec) 15 mg PO BID [facility] Last Admin: 01/10/19 08:57 Dose: 15 mg Enoxaparin Sodium (Lovenox) 40 mg SC 0900 [facility] Last Admin: 01/10/19 08:55 Dose: 40 mg Glucagon (Glucagon) 1 mg IM PRN PRN PRN Reason: Hypoglycemia Piperacillin Sod/Tazobactam (Sod 4.5 gm/ Sodium Chloride) 100 mls @ 200 mls/hr IVPB Q8HR [facility] Last Admin: 01/10/19 05:15 Dose: 100 mls Dextrose/Water (D5w) 1,000 mls @ 0 mls/hr IV .Q0M PRN PRN Reason: Hypoglycemia Insulin Human Lispro (Humalog) 0 units SC .MILD SLIDING SCALE PRN PRN Reason: Mild Correctional Scale Memantine (Namenda) 10 mg PO BID [facility] Last Admin: 01/10/19 08:53 Dose: 10 mg Metformin HCl (Glucophage) 1,000 mg PO BID [facility] Last Admin: 01/10/19 08:54 Dose: 1,000 mg Senna/Docusate Sodium (Senokot S) 2 tab PO BID PRN PRN Reason: Constipation
[2019-01-11] MEDS: metFORMIN 500 MG TAB PO SCH ×2 (09:00→21:39)
[2019-01-11] MEDS: Amlodipine 5 MG TAB PO SCH (09:01)
[2019-01-11] MEDS: Enoxaparin Sodium 40 MG/0.4 ML SYRINGE SC SCH (09:02)
[2019-01-11] MEDS: Aspirin 325 mg Enteric Coated Tablet PO SCH (09:02)
[2019-01-11] MEDS: Atorvastatin Calcium 20 MG TAB PO SCH (09:02)
--- NOTE | 2019-01-11 13:47 | PDOC.PN ---
- Subjective Encounter Start Date: 01/11/19 Encounter Start Time: 09:00 Pt seen for followup re: acute metabolic encephalopathy. Feels well. - Objective Resuscitation Status - Order Detail: 01/07/19 13:37 Resuscitation Status Routine Resuscitation Status: DNAR: NO Resuscitation Discussed with: family MAR Reviewed: Yes Vital Signs & Weight: Vital Signs (12 hours) Temp Pulse Resp BP BP Pulse Ox 01/11/19 09:01 68 160/67 H 01/11/19 07:30 99.1 F 68 18 168/84 H 95 Weight Weight 213 lb 6 oz I&O: 01/10/19 01/11/19 01/12/19 06:59 06:59 06:59 Intake Total 720 Output Total 650 Balance 720 -650 Result Diagrams: 01/12/19 10:15 01/12/19 10:15 Additional Labs: Accuchecks 01/11/19 01/10/19 01/10/19 06:06 20:04 17:02 POC Glucose 95 150 H 92 01/10/19 11:30 POC Glucose 96 labs reviewed by me Phys Exam - Physical Examination Constitutional: NAD HEENT: moist MMs Neck: supple Respiratory: clear to auscultation bilateral Cardiovascular: RRR Gastrointestinal: soft Neurological: moves all 4 limbs Psychiatric: normal affect Dx/Plan (1) Acute metabolic encephalopathy Code(s): G93.41 - METABOLIC ENCEPHALOPATHY Status: Acute Comment: Improved, HH vs SNU (2) DM type 2 (diabetes mellitus, type 2) Status: Chronic Comment: controlled (3) Alzheimer disease Code(s): G30.9 - ALZHEIMER'S DISEASE, UNSPECIFIED; F02.80 - DEMENTIA IN OTH DISEASES CLASSD ELSWHR W/O BEHAVRL DISTURB Status: Chronic Comment: on memantine (4) HTN (hypertension) Code(s): I10 - ESSENTIAL (PRIMARY) HYPERTENSION Status: Chronic Comment: controlled (5) Sepsis Code(s): A41.9 - SEPSIS, UNSPECIFIED ORGANISM Status: Resolved Comment: no clear etiology, off of antibiotics now - Plan * . Review of Systems - Review of Systems Constitutional: negative: fever, chills, sweats, weakness, malaise Cardiovascular: negative: chest pain, palpitations, orthopnea, paroxysmal nocturnal dyspnea, edema, light headedness - Medications/Allergies Allergies/Adverse Reactions: Allergies Allergy/AdvReac Type Severity Reaction Status Date / Time No Known Allergies Allergy Unverified 12/02/18 14:27 Medications: Current Medications Acetaminophen (Tylenol) 650 mg PO Q4H PRN PRN Reason: Headache/Fever/Mild Pain (1-3) Last Admin: 01/08/19 20:22 Dose: 650 mg Acetaminophen (Tylenol) 650 mg [place] Q4H PRN PRN Reason: Headache/Fever/Mild Pain (1-3) Amlodipine Besylate (Norvasc) 5 mg PO DAILY [facility] Last Admin: 01/11/19 09:01 Dose: 5 mg Aspirin (Ecotrin) 325 mg PO DAILY [facility] Last Admin: 01/11/19 09:02 Dose: 325 mg Atorvastatin Calcium (Lipitor) 20 mg PO DAILY [facility] Last Admin: 01/11/19 09:02 Dose: 20 mg Dextrose/Water (Dextrose 50%) 25 gm SLOW IVP PRN PRN PRN Reason: Hypoglycemia Enalapril Maleate (Vasotec) 15 mg PO BID [facility] Last Admin: 01/11/19 09:01 Dose: 15 mg Enoxaparin Sodium (Lovenox) 40 mg SC 0900 [facility] Last Admin: 01/11/19 09:02 Dose: 40 mg Glucagon (Glucagon) 1 mg IM PRN PRN PRN Reason: Hypoglycemia Dextrose/Water (D5w) 1,000 mls @ 0 mls/hr IV .Q0M PRN PRN Reason: Hypoglycemia Insulin Human Lispro (Humalog) 0 units SC .MILD SLIDING SCALE PRN PRN Reason: Mild Correctional Scale Memantine (Namenda) 10 mg PO BID [facility] Last Admin: 01/11/19 09:02 Dose: 10 mg Metformin HCl (Glucophage) 1,000 mg PO BID [facility] Last Admin: 01/11/19 09:00 Dose: 1,000 mg Senna/Docusate Sodium (Senokot S) 2 tab PO BID PRN PRN Reason: Constipation
[2019-01-12] MEDS: Amlodipine 5 MG TAB PO SCH (07:56)
[2019-01-12] MEDS: metFORMIN 500 MG TAB PO SCH ×2 (07:57→22:23)
[2019-01-12] MEDS: Atorvastatin Calcium 20 MG TAB PO SCH (07:57)
[2019-01-12] MEDS: Aspirin 325 mg Enteric Coated Tablet PO SCH (07:57)
[2019-01-12] MEDS: Enoxaparin Sodium 40 MG/0.4 ML SYRINGE SC SCH (07:58)
[2019-01-12 10:44] LABS: #Basophils 0.1 thou/uL (0.0-0.2); #Eosinphils 0.4 thou/uL (0.0-0.7); #Monocytes 0.8 thou/uL (0.11-0.59); #Neutrophils 3.8 thou/uL (1.40-6.50); %Basophils 1.8 % (0.0-1.0); %Lymphocytes 27.7 % (21.0-51.0); %Monocytes 10.7 % (0.0-10.0); %Neutrophils 53.8 % (42.0-75.0); Hemoglobin 13.4 g/dL (14.0-18.0); Mean Corpuscular HGB CONC 32.7 g/dL (32.0-36.0); Mean Corpuscular Hemoglobin 30.4 pg (27.0-31.0); Mean Corpuscular Volume 92.9 fL (78.0-98.0); Mean Platelet Volume 7.9 fL (7.4-10.4); Platelet Count 282 thou/uL (130-400); RBC Distribution Width 12.1 % (11.5-14.5); Red Blood Cell (RBC) Count 4.42 mill/uL (4.70-6.10); White Blood Cell (WBC) Count 7.1 thou/uL (4.8-10.8)
[2019-01-12 11:02] LABS: Anion Gap 13 mmol/L (10-20); BUN (Urea Nitrogen) 8 mg/dL (8.4-25.7); Calc. Creatinine Clearance 115 mL/min (70-130); Calcium 8.9 mg/dL (7.8-10.44); Carbon Dioxide 27 mmol/L (23-31); Chloride 104 mmol/L (98-107); Estimated GFR-MDRD Greater than 90; Glucose 103 mg/dL (83-110); Potassium 3.6 mmol/L (3.5-5.1); Sodium 140 mmol/L (136-145)
--- NOTE | 2019-01-12 18:22 | PDOC.PN ---
- Subjective Encounter Start Date: 01/12/19 Encounter Start Time: 12:00 Pt seen for followup re: acute metabolic encephalopathy. Says he feels well, no complaints. - Objective Resuscitation Status - Order Detail: 01/07/19 13:37 Resuscitation Status Routine Resuscitation Status: DNAR: NO Resuscitation Discussed with: family Vital Signs & Weight: Vital Signs (12 hours) Temp Pulse Resp BP BP Pulse Ox 01/12/19 08:27 97.9 F 67 18 148/70 H 93 L 01/12/19 07:57 150/81 H 01/12/19 07:56 65 150/81 H Weight Weight 213 lb 6 oz I&O: 01/11/19 01/12/19 01/13/19 06:59 06:59 06:59 Intake Total 1440 Output Total 650 Balance -650 1440 Result Diagrams: 01/12/19 10:15 01/12/19 10:15 Additional Labs: Accuchecks 01/12/19 01/12/19 01/11/19 18:07 04:23 20:25 POC Glucose 118 H 102 121 H Phys Exam - Physical Examination Obese HEENT: moist MMs Neck: no nodes Respiratory: no wheezing Cardiovascular: RRR Gastrointestinal: soft Neurological: moves all 4 limbs Psychiatric: normal affect Dx/Plan (1) Acute metabolic encephalopathy Code(s): G93.41 - METABOLIC ENCEPHALOPATHY Status: Acute Comment: Improved, Awaiting SNU bed. (2) DM type 2 (diabetes mellitus, type 2) Status: Chronic Comment: controlled (3) Alzheimer disease Code(s): G30.9 - ALZHEIMER'S DISEASE, UNSPECIFIED; F02.80 - DEMENTIA IN OTH DISEASES CLASSD ELSWHR W/O BEHAVRL DISTURB Status: Chronic Comment: stable, on memantine (4) HTN (hypertension) Code(s): I10 - ESSENTIAL (PRIMARY) HYPERTENSION Status: Chronic Comment: controlled (5) Sepsis Code(s): A41.9 - SEPSIS, UNSPECIFIED ORGANISM Status: Resolved - Plan * . Review of Systems - Review of Systems Cardiovascular: negative: chest pain, palpitations, orthopnea, paroxysmal nocturnal dyspnea, edema, light headedness Gastrointestinal: negative: Nausea, Vomiting, Abdominal Pain, Diarrhea, Constipation, Melena, Hematochezia - Medications/Allergies Allergies/Adverse Reactions: Allergies Allergy/AdvReac Type Severity Reaction Status Date / Time No Known Allergies Allergy Unverified 12/02/18 14:27 Medications: Current Medications Acetaminophen (Tylenol) 650 mg PO Q4H PRN PRN Reason: Headache/Fever/Mild Pain (1-3) Last Admin: 01/08/19 20:22 Dose: 650 mg Acetaminophen (Tylenol) 650 mg [place] Q4H PRN PRN Reason: Headache/Fever/Mild Pain (1-3) Amlodipine Besylate (Norvasc) 5 mg PO DAILY [facility] Last Admin: 01/12/19 07:56 Dose: 5 mg Aspirin (Ecotrin) 325 mg PO DAILY [facility] Last Admin: 01/12/19 07:57 Dose: 325 mg Atorvastatin Calcium (Lipitor) 20 mg PO DAILY [facility] Last Admin: 01/12/19 07:57 Dose: 20 mg Dextrose/Water (Dextrose 50%) 25 gm SLOW IVP PRN PRN PRN Reason: Hypoglycemia Enalapril Maleate (Vasotec) 15 mg PO BID [facility] Last Admin: 01/12/19 07:57 Dose: 15 mg Enoxaparin Sodium (Lovenox) 40 mg SC 0900 [facility] Last Admin: 01/12/19 07:58 Dose: 40 mg Glucagon (Glucagon) 1 mg IM PRN PRN PRN Reason: Hypoglycemia Dextrose/Water (D5w) 1,000 mls @ 0 mls/hr IV .Q0M PRN PRN Reason: Hypoglycemia Insulin Human Lispro (Humalog) 0 units SC .MILD SLIDING SCALE PRN PRN Reason: Mild Correctional Scale Memantine (Namenda) 10 mg PO BID [facility] Last Admin: 01/12/19 09:40 Dose: 10 mg Metformin HCl (Glucophage) 1,000 mg PO BID [facility] Last Admin: 01/12/19 07:57 Dose: 1,000 mg Senna/Docusate Sodium (Senokot S) 2 tab PO BID PRN PRN Reason: Constipation
--- NOTE | 2019-01-13 00:24 | DIS ---
DATE OF ADMISSION: 01/07/2019 DATE OF DISCHARGE: 01/12/2019 PRIMARY CARE PROVIDER: Red Webster MD DISCHARGE DIAGNOSES: 1. Acute metabolic encephalopathy. 2. Sepsis. 3. Alzheimer disease. CONDITION OF PATIENT ON THE DAY OF DISCHARGE: Stable. I assessed Mr. Contreras on the day of discharge. He denies any chest pain or shortness of breath. Vital signs are stable. S1 and S2 are heard, regular. Lungs are clear to auscultation bilaterally. DISCHARGE MEDICATIONS: 1. Amlodipine 5 mg daily. 2. Lipitor 20 mg daily. 3. Enalapril 15 mg two times a day. 4. Ibuprofen 200 mg at bedtime. 5. Memantine 10 mg 2 times a day. 6. Metformin 1000 mg 2 times a day. 7. Aspirin 325 mg daily. HOSPITAL COURSE: Mr. Contreras is a pleasant 78-year-old gentleman, who was admitted to [facility] on January 07, 2019, for acute metabolic encephalopathy and sepsis. Please refer to my history and physical note dated December 30, 2018, for further details. He was treated with empiric intravenous antibiotics. Antibiotics were discontinued when he started to improve. Final blood cultures did not show any growth. His leukocytosis resolved after antibiotics were started. There were concerns regarding his cognition and memory. He was evaluated by [facility]. He was being discharged to [facility] for further management. On the day of discharge, he has white count 7100, hemoglobin 13.4, platelet count 282,000, normal electrolytes and normal creatinine. TSH during this hospitalization was normal. Many thanks for allowing me to participate in your patient's care. Please feel free to contact me with any questions or concerns. DISCHARGE DESTINATION: [facility]. TIME SPENT: Total amount of time spent coordinating this discharge: 19 minutes. Job ID: [id number]
[2019-01-13 05:59] LABS: #Basophils 0.1 thou/uL (0.0-0.2); #Eosinphils 0.4 thou/uL (0.0-0.7); #Lymphocytes 2.3 thou/uL (1.20-3.40); #Monocytes 0.8 thou/uL (0.11-0.59); #Neutrophils 3.9 thou/uL (1.40-6.50); %Basophils 1.2 % (0.0-1.0); %Monocytes 10.6 % (0.0-10.0); %Neutrophils 52.2 % (42.0-75.0); Hemoglobin 12.3 g/dL (14.0-18.0); Mean Corpuscular HGB CONC 33.1 g/dL (32.0-36.0); Mean Corpuscular Hemoglobin 30.7 pg (27.0-31.0); Mean Corpuscular Volume 92.7 fL (78.0-98.0); Mean Platelet Volume 7.6 fL (7.4-10.4); Platelet Count 258 thou/uL (130-400); RBC Distribution Width 11.9 % (11.5-14.5); White Blood Cell (WBC) Count 7.5 thou/uL (4.8-10.8)
[2019-01-13 06:17] LABS: Anion Gap 10 mmol/L (10-20); BUN (Urea Nitrogen) 9 mg/dL (8.4-25.7); Calc. Creatinine Clearance 124 mL/min (70-130); Calcium 8.6 mg/dL (7.8-10.44); Carbon Dioxide 27 mmol/L (23-31); Chloride 106 mmol/L (98-107); Estimated GFR-MDRD Greater than 90; Glucose 103 mg/dL (83-110); Potassium 3.5 mmol/L (3.5-5.1); Sodium 139 mmol/L (136-145)
[2019-01-13] MEDS: Aspirin 325 mg Enteric Coated Tablet PO SCH (08:03)
[2019-01-13] MEDS: metFORMIN 500 MG TAB PO SCH ×2 (08:03→20:51)
[2019-01-13] MEDS: Atorvastatin Calcium 20 MG TAB PO SCH (08:03)
[2019-01-13] MEDS: Enoxaparin Sodium 40 MG/0.4 ML SYRINGE SC SCH (08:03)
[2019-01-13] MEDS: Amlodipine 5 MG TAB PO SCH (08:03)
--- NOTE | 2019-01-13 16:54 | PDOC.PN ---
- Subjective Encounter Start Date: 01/13/19 Encounter Start Time: 09:00 Pt seen for followup re: acute metabolic encephalopathy. No complaints, feels well. - Objective Resuscitation Status - Order Detail: 01/07/19 13:37 Resuscitation Status Routine Resuscitation Status: DNAR: NO Resuscitation Discussed with: family MAR Reviewed: Yes Vital Signs & Weight: Vital Signs (12 hours) Pulse BP 01/13/19 08:03 73 134/68 01/13/19 08:02 134/68 Weight Weight 213 lb 6 oz I&O: 01/12/19 01/13/19 01/14/19 06:59 06:59 06:59 Intake Total 1440 Balance 1440 Result Diagrams: 01/13/19 05:38 01/13/19 05:38 Additional Labs: Accuchecks 01/13/19 01/13/19 01/12/19 10:54 04:52 22:24 POC Glucose 105 96 115 H 01/12/19 18:07 POC Glucose 118 H Labs reviewed by me Phys Exam - Physical Examination Constitutional: NAD HEENT: moist MMs Neck: supple Respiratory: clear to auscultation bilateral Cardiovascular: RRR Gastrointestinal: soft Dx/Plan (1) Acute metabolic encephalopathy Code(s): G93.41 - METABOLIC ENCEPHALOPATHY Status: Acute Comment: Improved (2) DM type 2 (diabetes mellitus, type 2) Status: Chronic Comment: controlled (3) Alzheimer disease Code(s): G30.9 - ALZHEIMER'S DISEASE, UNSPECIFIED; F02.80 - DEMENTIA IN OTH DISEASES CLASSD ELSWHR W/O BEHAVRL DISTURB Status: Chronic Comment: stable (4) HTN (hypertension) Code(s): I10 - ESSENTIAL (PRIMARY) HYPERTENSION Status: Chronic Comment: controlled (5) Sepsis Code(s): A41.9 - SEPSIS, UNSPECIFIED ORGANISM Status: Resolved - Plan * . Review of Systems - Review of Systems Gastrointestinal: negative: Nausea, Vomiting, Abdominal Pain, Diarrhea, Constipation, Melena, Hematochezia Genitourinary: negative: Dysuria, Frequency, Incontinence, Hematuria, Retention - Medications/Allergies Allergies/Adverse Reactions: Allergies Allergy/AdvReac Type Severity Reaction Status Date / Time No Known Allergies Allergy Unverified 12/02/18 14:27 Medications: Current Medications Acetaminophen (Tylenol) 650 mg PO Q4H PRN PRN Reason: Headache/Fever/Mild Pain (1-3) Last Admin: 01/08/19 20:22 Dose: 650 mg Acetaminophen (Tylenol) 650 mg [place] Q4H PRN PRN Reason: Headache/Fever/Mild Pain (1-3) Amlodipine Besylate (Norvasc) 5 mg PO DAILY [facility] Last Admin: 01/13/19 08:03 Dose: 5 mg Aspirin (Ecotrin) 325 mg PO DAILY [facility] Last Admin: 01/13/19 08:03 Dose: 325 mg Atorvastatin Calcium (Lipitor) 20 mg PO DAILY [facility] Last Admin: 01/13/19 08:03 Dose: 20 mg Dextrose/Water (Dextrose 50%) 25 gm SLOW IVP PRN PRN PRN Reason: Hypoglycemia Enalapril Maleate (Vasotec) 15 mg PO BID [facility] Last Admin: 01/13/19 08:02 Dose: 15 mg Enoxaparin Sodium (Lovenox) 40 mg SC 0900 [facility] Last Admin: 01/13/19 08:03 Dose: 40 mg Glucagon (Glucagon) 1 mg IM PRN PRN PRN Reason: Hypoglycemia Dextrose/Water (D5w) 1,000 mls @ 0 mls/hr IV .Q0M PRN PRN Reason: Hypoglycemia Insulin Human Lispro (Humalog) 0 units [place] .MILD SLIDING SCALE PRN PRN Reason: Mild Correctional Scale Memantine (Namenda) 10 mg PO BID [facility] Last Admin: 01/13/19 08:03 Dose: 10 mg Metformin HCl (Glucophage) 1,000 mg PO BID [facility] Last Admin: 01/13/19 08:03 Dose: 1,000 mg Senna/Docusate Sodium (Senokot S) 2 tab PO BID PRN PRN Reason: Constipation
[2019-01-13] MEDS ORDERED: Piperacillin/Tazobactam 4.5 GM VIAL ONE (20:17)
[2019-01-14 07:58] VITALS: BP 146/71; TEMP 97.9
[2019-01-14 07:58] LABS: #Basophils 0.1 thou/uL (0.0-0.2); #Eosinphils 0.4 thou/uL (0.0-0.7); #Lymphocytes 2.1 thou/uL (1.20-3.40); #Monocytes 0.8 thou/uL (0.11-0.59); #Neutrophils 4.7 thou/uL (1.40-6.50); %Basophils 1.2 % (0.0-1.0); %Eosinophils 4.7 % (0.0-10.0); %Lymphocytes 26.2 % (21.0-51.0); %Monocytes 9.7 % (0.0-10.0); %Neutrophils 58.1 % (42.0-75.0); Hemoglobin 12.4 g/dL (14.0-18.0); Mean Corpuscular HGB CONC 33.1 g/dL (32.0-36.0); Mean Corpuscular Hemoglobin 31.2 pg (27.0-31.0); Mean Corpuscular Volume 94.3 fL (78.0-98.0); Mean Platelet Volume 7.5 fL (7.4-10.4); Platelet Count 271 thou/uL (130-400); RBC Distribution Width 12.1 % (11.5-14.5); Red Blood Cell (RBC) Count 3.97 mill/uL (4.70-6.10)
[2019-01-14] MEDS: Atorvastatin Calcium 20 MG TAB PO SCH (08:14)
[2019-01-14] MEDS: Enoxaparin Sodium 40 MG/0.4 ML SYRINGE SC SCH (08:14)
[2019-01-14] MEDS: Amlodipine 5 MG TAB PO SCH (08:15)
[2019-01-14] MEDS: metFORMIN 500 MG TAB PO SCH (08:15)
[2019-01-14] MEDS: Aspirin 325 mg Enteric Coated Tablet PO SCH (08:15)
[2019-01-14 08:16] LABS: Anion Gap 12 mmol/L (10-20); BUN (Urea Nitrogen) 9 mg/dL (8.4-25.7); Calc. Creatinine Clearance 115 mL/min (70-130); Calcium 8.7 mg/dL (7.8-10.44); Carbon Dioxide 26 mmol/L (23-31); Chloride 105 mmol/L (98-107); Estimated GFR-MDRD Greater than 90; Glucose 108 mg/dL (83-110); Potassium 3.5 mmol/L (3.5-5.1); Sodium 139 mmol/L (136-145)
--- NOTE | 2019-01-14 16:37 | DIS ---
DATE OF ADMISSION: 01/07/2019 DATE OF DISCHARGE: 01/14/2019 PRIMARY CARE PROVIDER: Dr. Red Webster. DISCHARGE DIAGNOSES: 1. Acute metabolic encephalopathy. 2. Sepsis. 3. Alzheimer disease. Please note that I dictated a discharge summary on Mr. Contreras on January 12, 2019. He could not be discharged that day because he was awaiting insurance authorization to be discharged to [facility]. There were no significant events between January 12 and January 14. Insurance authorization was obtained and the patient is being discharged to [facility]. Otherwise, there is no change to hospital course or discharge medications as dictated on my discharge summary dated January 12, 2019. Condition of the patient on the day of discharge: Stable. I assessed Mr. Contreras on the day of discharge. He denies any chest pain or shortness of breath. Vital signs are stable. S1 and S2 are heard, regular. Lungs are clear to auscultation bilaterally. DISCHARGE DESTINATION: [facility]. Total amount of time spent coordinating this discharge: 15 minutes. Job ID: [id number]
== END 2019-01-14 13:45 | DRG 871 ==
LOC: ERS 03:55 → T4-A 08:51
PROVIDERS: ADMIT Internal Medicine; ATTEND Internal Medicine
DX: A41.9 Sepsis, unspecified organism (principal); G93.41 Metabolic encephalopathy; E11.9 Type 2 diabetes mellitus without complications; I10 Essential (primary) hypertension; G30.9 Alzheimer's disease, unspecified; F02.80 Dementia in other diseases classified elsewhere, unspecified severity, without behavioral disturbance, psychotic disturbance, mood disturbance, and anxiety; E78.5 Hyperlipidemia, unspecified; Z66 Do not resuscitate; Z85.46 Personal history of malignant neoplasm of prostate; Z79.84 Long term (current) use of oral hypoglycemic drugs; Z79.82 Long term (current) use of aspirin; Z79.899 Other long term (current) drug therapy
CPT/HCPCS: 36415; 36416; 51701; 70450; 71045; 80048; 80053; 81003; 82550; 83605; 84443; 84484; 85025; 87040; 90471; 90670; 93005; 96361; 96365; G0009; J1650; J2543; J7050

== ENCOUNTER 2019-08-11 00:47 | Emergency (ER) | payer MEDICARE ==
--- NOTE | 2019-08-11 07:55 | CT ---
PRELIMINARY REPORT/[facility]/EMERGENCY AFTER HOURS PROCEDURE: PROCEDURE INFORMATION: Exam: CT Head without contrast Exam date and time: 08/11/2019 1:16 AM Clinical history: 79 years old, male; Injury or trauma; Initial encounter; Blunt trauma (contusions o r hematomas); Patient HX: 79 y/o m, with h/o dementia, [place] [facility] nwitnessed fall that [facility] staff reports possibly occurred at 2330. PT is unsure as to why he fell, noti ng C/O R shoulder pain. TECHNIQUE: Imaging protocol: Computed tomography of the head without contrast. COMPARISON: No relevant prior studies available. FINDINGS: Brain: No intracranial hemorrhage, mass effect, or edema. Bilateral periventricular and subcortical a reas of low attenuation, probably related to chronic small vessel ischemic disease, including right p arietal/periventricular hypodensity/encephalomalacia also reported on prior 01/07/29 CT although image s are not available for review. Intracranial atherosclerotic calcifications. Enlargement of the ventr icles and cortical sulci, related to cerebral atrophy. Ventricles: No acute findings. Bones/joints: No acute fracture. Sinuses: No significant air-fluid levels. Mastoid air cells: No mastoid effusion. Soft tissues: No acute findings. IMPRESSION: No acute traumatic injury. Findings described above. Thank you for allowing us to participate in the care of your patient. Dictated and Authenticated by: Donell Sanchez MD 08/11/2019 2:09 AM Central Time ([place] & [place]) FINAL REPORT EMERGENCY AFTER HOURS BRAIN CT WITHOUT IV CONTRAST: Date: 08/11/19 Time: 0117 hours IMPRESSION: Atrophy and chronic white matter ischemic changes with stable encephalomalacic changes in the right p arietal region. No mass or bleed. Report in agreement with preliminary report given on-call by [facility]. POS: [facility]
--- NOTE | 2019-08-11 08:51 | RAD ---
RIGHT SHOULDER THREE VIEWS: HISTORY: Fall with injury. FINDINGS: No evidence of fracture or dislocation at the glenohumeral joint. The clavicle is superiorly position ed at the AC joint and this indicates AC separation, possibly old. Recommend clinical correlation. No evidence of acute fracture. There is a mottled appearance to the proximal humerus. This may represent osteoporosis however other etiologies such as multiple myeloma are considerations. Again recommend clinical correlation. CODE T POS: OFF
== END 2019-08-11 03:26 | disposition home or self-care (01) ==
LOC: ERS 00:47
DX: S40.011A Contusion of right shoulder, initial encounter (principal); I25.10 Atherosclerotic heart disease of native coronary artery without angina pectoris; E11.9 Type 2 diabetes mellitus without complications; E78.5 Hyperlipidemia, unspecified; I10 Essential (primary) hypertension; Z85.46 Personal history of malignant neoplasm of prostate; G30.9 Alzheimer's disease, unspecified; F02.80 Dementia in other diseases classified elsewhere, unspecified severity, without behavioral disturbance, psychotic disturbance, mood disturbance, and anxiety; Z79.899 Other long term (current) drug therapy; Z79.84 Long term (current) use of oral hypoglycemic drugs; W18.30XA Fall on same level, unspecified, initial encounter
CPT/HCPCS: 70450